=== PATIENT | male | born 1940 | race Two or more races ===

== ENCOUNTER 2024-01-10 16:32 | Emergency (ER) | payer MEDICARE, OTHER ==
[~2024-01-10] VITALS: Ht 152.4 cm; Wt 64.7 kg
[2024-01-10 19:02] VITALS: BP 150/57; PULSE 58; RESP 16; TEMP 98.3; O2SAT 96
[2024-01-10 19:47] LABS: Rapid Strep A Screen-Throat Negative
[2024-01-10] MEDS ORDERED: BENZ100C97 PO (19:54)
[2024-01-10] MEDS ORDERED: PRED20TA2 PO (20:14)
[2024-01-10] MEDS ORDERED: AZIT500T66 PO (20:14)
[2024-01-10] MEDS: DexAMETHasone SOD PHOS 10MG/1ML VIAL INJ IM ONE (21:39)
== END 2024-01-11 05:20 | disposition home or self-care (01) ==
LOC: ER 16:32
DX: J18.9 Pneumonia, unspecified organism (principal); I10 Essential (primary) hypertension; E11.9 Type 2 diabetes mellitus without complications
CPT/HCPCS: 71045; 87070; 87880; 96372; 99284; J1100